=== PATIENT | male | born 1945 | race Caucasian/White ===

== ENCOUNTER 2016-03-27 00:58 | Emergency (ER) | payer MEDICARE ==
[2016-03-27 00:59] VITALS: BMI 26.6
--- NOTE | 2016-03-27 01:10 | EDPRACDOC ---
- General Information Stated Complaint: RESP DISTRESS Time Seen by Provider: 03/27/16 01:02 Information Source: Patient, [place] Mode Of Arrival: Ambulance Home Medications: Home Medications Gabapentin 600 mg PO BID 03/07/13 Glimepiride [Amaryl] 4 mg PO DAILY 03/07/13 Metformin HCl 1,000 mg PO BID 03/07/13 Albuterol/Ipratropium Neb [Duoneb] 3 ml NEB QID 02/10/15 Fluticasone/Vilanterol [Breo Ellipta 100-25 Mcg INH] 1 each IH DAILY 02/10/15 HydrOXYzine HCl (Antihistamine [Atarax] 25 mg PO Q6 PRN #30 tab 02/10/15 Hydrocodone Bit/Homatropine [Hycodan Syrup] 5 ml PO Q6 PRN #120 syrup 02/10/15 Insulin Glargine [Lantus Pen] 10 units SQ QAM 02/10/15 Levocetirizine Dihydrochloride [Xyzal] 5 mg PO DAILY 02/10/15 Prednisone [Deltasone] 20 mg PO BID #10 tablet 03/27/16 Allergies/Adverse Reactions: Allergies Allergy/AdvReac Type Severity Reaction Status Date / Time Penicillins Allergy Intermediate sick Verified 03/08/13 00:53 - History of Present Illness HPI: PT PRESENTS VIA EMS FROM. FEELS SOB, CAN'T WALK. SYMPTOMS STARTED APPROX 1500. PT HYPERVENTILATING WITH EMS. EMESIS X 2 TODAY. Shortness of Breath: Moderate ED Past Medical History - History Reviewed Yes Nurses notes reviewed and agree except as marked - Patient Medical History Respiratory History: Reports: Asthma, COPD, Emphysema. Denies: Pneumonia Musculoskeletal History: Reports: Arthritis Psychological History: Reports: Depression Systemic History: Reports: Cancer (hodgkins lymphoma), Diabetes Date of Last Chemotherapy Date: 02/2012 - Family Medical History Reports: Hypertension (dad), Diabetes (mom, dad), Cancer (mom-breast), Stroke ( mom), Cardiac Disorders (dad) - Social Medical History Smoking Status: Heavy tobacco smoker (5 or more cigarettes/day or daily pipe/ cigar) EDM Review of Systems - Review of Systems ROS Negative Except as Marked: Yes All systems reviewed and were negative except as marked Throat: No Symptoms Reported Nose: No Symptoms Reported Mouth: No Symptoms Reported Cardiovascular: No Symptoms Reported Genitourinary: No Symptoms Reported - Physical Exam Constitutional: No apparent distress, Alert (Awake), Other (HYPERVENTILATES EXCEPT WHEN TALKING, TELLING STORIES (WHICH HE HAS MANY!)) Oriented to: Time, Person, Place Last recorded Vital Signs: Oxygen Pulse Oxygen Saturation O2 Device Oxygen Flow Rate Fraction of Inspired Oxygen ( FIO2) - HEENT Head: Normal ( normocephalic) Eye Exam: Normal (PERRL, EOMI, Sclera white) Oropharynx: Normal (Pharynx:Moist without exudate,Gums-no swelling) Nose: No Symptoms Reported (septum midline) Neck: Normal (FROM, trachea at midline) - Respiratory/Cardiovascular Respiratory: Rhonchi (B/L) Cardiovascular: Normal (RRR without murmur, gallop or rub) - GI Auscultation: Normal (NABS) Palpation: Normal (Soft,No rebound or guarding, non distended) Tenderness: Non tender Car's Sign: Negative - Musculoskeletal Back: Normal (Non-Tender) Extremities: Normal (Normal tone, Pulses 2+ No cyanosis or edema, FROM) - Integumentary Skin: Normal, Warm, Dry Lymphatics: Normal (no adenopathy) - Neurologic Memory Impaired: Normal Motor Function: Normal (Normal tone, Pulses 2+ No cyanosis or edema, FROM) Cranial Nerve: Normal (CN II-X11 intact sensation, strength 5/5) Cerebellar: Normal Mood Description: Normal Perception: Normal ED SOB MDM - Re-evaluation Re-evaluation 1 Re-evaluation Time: 02:44 Re-evaluation: PT ABLE TO STAND. FAMILY REPORTS PT OUT OF HIS NERVE MEDS. - Results Result Diagrams: 03/27/16 02:02 03/27/16 02:02 - EKG EKG #1 EKG Time: 01:17 -: Yes EKG interpreted by me Rate: bpm: [address] [place]: Normal Rhythm: NSR Block: RBBB (INCOMPLETE) Hypertrophy: None ST: Normal Comments: NORMAL EKG Decision Time to Discharge: 02:45 - Departure Yes I personally saw and evaluated the patient. Disposition: Home Condition: Stable Final Diagnosis: Hyperventilation, Acute exacerbation of chronic obstructive airways disease Dyspnea Qualifiers: Dyspnea type: unspecified Qualified Code(s): R06.00 - Dyspnea, unspecified Instructions: Dyspnea (ED), COPD (Chronic Obstructive Pulmonary Disease) (ED) Education/Counseling Given To: Patient Education/Counseling Given Regarding: Diagnosis Referrals: Jean-Pierre Contreras MD [Staff Physician] - One Week Prescriptions: Prednisone [Deltasone] 20 mg PO BID #10 tablet
[2016-03-27 01:15] VITALS: TEMP 97.6
[2016-03-27] MEDS ORDERED: ALBUTEROL 0.083% 3 ML NEB NEB ONE (01:16)
--- NOTE | 2016-03-27 01:53 | DIRPT ---
CLINICAL DATA: 7-year-old male with shortness of breath EXAM: PORTABLE CHEST 1 VIEW COMPARISON: Radiograph dated 02/10/2015 FINDINGS: Single-view of the chest does not demonstrate a focal consolidation. There is no pleural effusion or pneumothorax. Stable cardiac silhouette. Left-sided central venous line with tip in stable position over mid SVC. IMPRESSION: No active disease. Electronically Signed By: Skinny Jones M.D. On: 03/27/2016 01:51
[2016-03-27 02:14] LABS: AUTOMATED BASOPHIL 1.1 % (0-2); AUTOMATED EOSINOPHIL 1.4 % (0-5); AUTOMATED LYMPH 8.5 % (17-44); MPV 8.6 fL (7.4-10.4)
[2016-03-27 02:16] LABS: ABG Draw Site Left Radial; ALLEN'S TEST PASS; BEb 3.1 (+/- 2); TCO2 25.4 MMOL/L (23-27)
[2016-03-27 02:19] LABS: PARTIAL THROMB. TIME 26.1 SEC (22-35); PT-INR 1.1
[2016-03-27 02:20] VITALS: BP 204/92; PULSE 75
[2016-03-27 02:23] LABS: BLOOD UREA NITROGEN 13 MG/DL (9-20); CALCIUM 9.2 MG/DL (8.4-10.2); CALCULATED OSMOLALITY 270 MOs/Kg (270-290); CHLORIDE 102 mEq/L (98-107); GLUCOSE 140 MG/DL (70-99); SODIUM LEVEL 139 mEq/L (137-146); TOTAL PROTEIN 7.3 G/DL (6.3-8.2)
[2016-03-27] MEDS ORDERED: METHYLPREDNISOLONE 125 MG/2 ML VIAL IV ONE (02:36)
[2016-03-27] MEDS ORDERED: LORAZEPAM 1 MG TAB PO ONE (02:44)
== END 2016-03-27 02:56 | disposition home or self-care (01) ==
LOC: ED 00:58
DX: J44.1 Chronic obstructive pulmonary disease with (acute) exacerbation (principal); R06.4 Hyperventilation
CPT/HCPCS: 36415; 36600; 71010; 80053; 82803; 83880; 84484; 85025; 85379; 85610; 85730; 93005; 94640; 96374; 99283; A9270; J2930; J3490